=== PATIENT | female | born 1975 | race Caucasian/White ===

== ENCOUNTER → 2021-05-08 14:43 | Outpatient (BNVA) | payer MEDICARE, MEDICAID, SELFPAY | PROVIDERS: Family Provider Family Medicine; PCP Anesthesiology; Visit Provider Orthopaedic Surgery | DX: M54.5 Low back pain (principal); M48.061 Spinal stenosis, lumbar region without neurogenic claudication | CPT/HCPCS: 72110 ==

== ENCOUNTER → 2021-05-09 15:28 | Outpatient (BNVA) | payer MEDICARE, MEDICAID, SELFPAY | PROVIDERS: Family Provider Family Medicine; PCP Anesthesiology; Visit Provider Podiatrist Foot & Ankle Surgery | DX: M79.673 Pain in unspecified foot (principal); S86.319A Strain of muscle(s) and tendon(s) of peroneal muscle group at lower leg level, unspecified leg, initial encounter; X58.XXXA Exposure to other specified factors, initial encounter | CPT/HCPCS: 73610 ==

== ENCOUNTER 2021-05-09 16:18 | Outpatient (CLI) | payer MEDICARE, MEDICAID, SELFPAY | END 2021-05-09 16:19 | disposition home or self-care (01) | LOC: SPT 05-10 10:19 | PROVIDERS: Family Provider Family Medicine; PCP Anesthesiology; Visit Provider Podiatrist Foot & Ankle Surgery | DX: Z46.89 Encounter for fitting and adjustment of other specified devices (principal); M76.71 Peroneal tendinitis, right leg | CPT/HCPCS: 97760; L4361 ==

== ENCOUNTER → 2021-05-14 09:13 | Outpatient (BNVA) | payer MEDICARE, MEDICAID, SELFPAY | PROVIDERS: Family Provider Family Medicine; PCP Family Medicine; Referring Provider Orthopaedic Surgery; Visit Provider Anesthesiology Pain Medicine | DX: G89.29 Other chronic pain (principal); M54.41 Lumbago with sciatica, right side; M47.816 Spondylosis without myelopathy or radiculopathy, lumbar region; M54.16 Radiculopathy, lumbar region; M43.10 Spondylolisthesis, site unspecified; M79.604 Pain in right leg; Z79.891 Long term (current) use of opiate analgesic | CPT/HCPCS: 99204 ==

== ENCOUNTER → 2021-06-04 13:08 | Outpatient (BNVA) | payer MEDICARE, MEDICAID, SELFPAY | PROVIDERS: Family Provider Family Medicine; PCP Family Medicine; Visit Provider Anesthesiology Pain Medicine | DX: M54.16 Radiculopathy, lumbar region (principal); Z79.891 Long term (current) use of opiate analgesic | CPT/HCPCS: 64483; 64484; J1100; J3490 ==

== ENCOUNTER → 2021-07-18 09:50 | Outpatient (BNVA) | payer MEDICARE, MEDICAID, SELFPAY | PROVIDERS: Family Provider Family Medicine; PCP Family Medicine; Visit Provider Podiatrist Foot & Ankle Surgery | DX: M79.673 Pain in unspecified foot (principal); M19.072 Primary osteoarthritis, left ankle and foot | CPT/HCPCS: 73630 ==

== ENCOUNTER 2021-09-12 12:06 | Observation (INO) | payer MEDICARE, MEDICAID, SELFPAY ==
[2021-09-11 13:32] VITALS: BMI 26.2
[2021-09-12] VITALS (28 sets, daily range): BP systolic 101–176; BP diastolic 62–111; PULSE 65–93; RESP 13–25; TEMP 36.3–36.8; O2SAT 90–100; BMI 26.2
--- NOTE | 2021-09-12 | SCC_ITS ---
Procedure: 1. L4/5 Interbody fusion with posterolateral fusion 2. Instrumentation L4/5 3. Cage at L4/5 4. Laminectomy L4 5. use of autograft from same incision 6. allograft 7. Bone marrow aspirate from right iliac crest from separate incision in fascia 8. use of computer naviagtion/ stereotactic spine 11 seconds of fluoroscopic guidance, for a cumulative dose of 20.7 mGy, was provided to Dr. Keating by the radiology department. C-arm images of the lumbar spine were saved for the patient's permanent record. AMADOR
--- NOTE | 2021-09-12 | XR_ITS ---
WS: [id number] Lumbar spine, C-arm fluoroscopy, 09/12/2021 Clinical Data: or pics Comparison: None. Findings: Dr. Keating performed a posterior lumbar fusion at L4-L5 with a disc spacer at L4-L5. XR/XR lumbar spine 2-3V* [id number] Impression: Posterior lumbar fusion
--- NOTE | 2021-09-12 07:51 | ANES.PREANE2 ---
Pre-Anesthetic Assessment Pre-Anesthetic Assessment: Height/Weight: Height 1.57 m Weight 64.864 kg Temp Pulse Resp BP Pulse Ox 98.1 F 65 18 121/71 96 09/12/21 07:39 09/12/21 07:39 09/12/21 07:39 09/12/21 07:39 09/12/21 07:39 Preop Diagnosis: Spinal listhesis L4-5 with Lumbar radiculopathy Proposed Procedure: Operation Date: 09/12/21 09:00 Proposed Procedures p Posterior Lumbar Interbody Fusion L4/5 [id number] M43.16(Not Applicable) - Damian Keating, DO Was Beta Estuardo taken within 24 hours: Yes Was Clonidine taken within 24 hours: N/A Last intake: Intake Last Liquid Date 09/11/21 Last Liquid Time 22:00 Last Solid Date 09/11/21 Last Solid Time 22:00 Social: Social History: Tobacco (vapes) and No alcohol Exam: Pre-Anes Outpt Exam: alert, oriented x 3, clear to auscultation bilaterally and regular rate & rhythm Airway: Submandibular: WNL Cervical ROM: WNL MP: 2 Dentition: Full CV/HEM: CV/HEM: HTN Musc/skel: Musc/skel: Lower Back Pain Comments: Chronic pain/opioid Neuropsych: Neuropsych: Anxiety Anesthetic Plan: ASA status: 3 Anesthesia: General Other: +/- A.line, Transfusion OK if necessary Risk of > 500 ml blood loss (7ml/kg in children): Yes, adequate IV access and fluids planned PFSH Anesthesia PFSH: Medical History Lumbar radiculitis Family History Father Hypertension Diabetes Mother Hypertension Social History Second hand smoke exposure: No Alcohol intake: current Alcohol intake frequency: holidays/special occasions only Alcohol type: other Marital status: History of recent travel: No Female Reproductive History: Date of last menstrual period: 08/06/21 Data Anesthesia Cardiac Studies: No Data to Display
[2021-09-12] MEDS: sodium chloride 0.9% 1,000 ML 30 ML IV (08:00)
[2021-09-12 08:15] LABS: Basophils # 0.1 10^3/uL (0.0-0.1); Basophils % 1.3 %; Eosinophils # 0.3 10^3/uL (0.0-0.8); Eosinophils % 3.1 %; Hematocrit 36.6 % (37.0-47.0); Lymphocytes # 3.1 10^3/uL (0.8-4.8); Lymphocytes % 37.2 %; Mean Corpuscular HGB Conc 32.8 g/dL (30.0-36.0); Mean Corpuscular Hemoglobin 32.5 pg (28.0-34.0); Mean Corpuscular Volume 99.2 fl (81-99); Monocytes # 0.7 10^3/uL (0.2-0.9); Monocytes % 8.3 %; Neutrophils # 4.09 10^3/uL (1.8-7.7); Nucleated Red Blood Cells % 0 %; Platelet Count 373 10^3/cmm (130-400); Red Blood Count 3.69 10^6/uL (4.1-5.3); White Blood Count 8.2 10^3/uL (4.0-10.0)
[2021-09-12 08:23] LABS: OR HCG Qualitative Urine Negative (Negative)
[2021-09-12 08:40] LABS: Anion Gap 12.8 (5-19); Blood Urea Nitrogen 17 mg/dL (6-20); Calcium 9.1 mg/dL (8.5-10.5); Carbon Dioxide 27 mmol/L (22-29); Chloride 104 mmol/L (98-107); Glomerular Filtration Rate 90.1 mL/min (90-130); Glucose 90 mg/dL (65-115); Osmolality Calculated 291 mOsm/kg (285-295); Potassium 3.8 mmol/L (3.5-5.1); Sodium 140 mmol/L (136-145)
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
[2021-09-12] MEDS: heparin, porcine 1,000 unit/mL INJ 10 mL 10000 UNIT IRRIGATION (10:21)
[2021-09-12] MEDS: vancomycin 1,000 MG SDV 1000 MG XX (10:28)
--- NOTE | 2021-09-12 12:26 | P.OP_ITS ---
Operative Report Date of procedure: September 12, 2021 Pre-op Diagnosis: Sponylolisthesis L4-5 with Lumbar radiculopathy Post-op diagnosis: same Post-op Findings: 1. L4/5 Interbody fusion with posterolateral fusion 2. Instrumentation L4/5 3. Cage at L4/5 4. Laminectomy L4 5. use of autograft from same incision 6. allograft 7. Bone marrow aspirate from right iliac crest from separate incision in fascia 8. use of computer naviagtion/ stereotactic spine Surgeon: Damian Keating Maintenance Of Way Foreman: Trent Grace Maintenance Of Way Foreman: The surgical instrument mechanic, Trent Grace, PAC was needed for his expertise under the microscope. He was important and necessary throughout the procedure to complete in a safe and timely manner. He assisted with patient positioning prepping and draping tissue retraction suctioning of the operative field protection of the dural sac and tissue closure Anesthesia: General Estimated blood loss (mL): 200 Condition: stable Disposition: PACU Procedure: 1. L4/5 Interbody fusion with posterolateral fusion 2. Instrumentation L4/5 3. Cage at L4/5 4. Laminectomy L4 5. use of autograft from same incision 6. allograft 7. Bone marrow aspirate from right iliac crest from separate incision in fascia 8. use of computer naviagtion/ stereotactic spine Patient is brought to the operative suite. After undergoing anesthesia, the patient had neuro monitoring attached. Patient was then placed in the prone position on the Yusef table. All areas of impingement were well-padded. Patient was then prepped and draped in the normal sterile fashion. Skin incision was then made over the L4/5 disk space. Subperiosteal dissection was made out to the transverse processes of L4 and L5. Once the exposure was complete attention was then brought to obtaining bone marrow aspirate. The [employer] bone marrow aspirate kit was used to aspirate bone marrow aspirate from right iliac crest. This was done by using the sharp probe to open up the bone. Aspiration was performed and then the blunt probe was then used to dissect down to through the bone tunnel. An aspirating well drawn back a millimeter approximately 20 cc of bone marrow aspirate was used. And mixed with the allograft and autograft bone that will be used. Next attention was brought to placing the fiducial in the right iliac crest. This was done by placing 2 pins. And the fiducial was connected. The information for the computer was logged into the fiducial. Then the C arm was brought in and information from fluoroscopy was linked into the computer which was then linked to the fiducial. This was used for the computer navigation component. The technique for placing the pedicle screws was to use a drill followed by the gearshift probe with computer navigation. Followed by the ball probe to feel the superior inferior medial lateral monroy of the pedicles. Then placement of the screw with computer navigation. Was done at each pedicle. Screws were placed at L4 bilaterally and L5 bilaterally. Next attention was brought to performing the laminectomy of L4. This was done using the high-speed bur Kerrisons and curettes. Once the lamina was removed and then attention was brought to performing a partial facetectomy on the contralateral side. This was done again using the high-speed bur curettes and Kerrisons. The ligamentum flavum was taken down bilaterally from L4 to L5. Attention was then brought to the facet on the ipsilateral side. The facet was taken down. The L5 nerve was decompressed as it passed around the L5 pedicle. The laminectomy was done for purposes of decompressing the nerve as well as placement of the cage. The L4 nerve was identified as it traversed through the L4/5 foramen. The thecal sac was identified and retracted. The L4/5 disc base was identified. Using a knife the disc base was opened. And then sequential hayley were placed. The first shaver was a 6 and the last shaver was a 10. Using a pituitary and down going curette the endplates were scraped and disc ma terial was removed from the space. Once adequate decompression of the disc base was felt to be had. Osteoamp sponge was packed into the anterior aspect of the disc base. Then a size 10 cage from [employer] was placed after packing osteoamp into the cage. While placing the cage the thecal sac and L5 nerve was protected. C arm was used to ensure that the cages placed in the appropriate position. Attention was then brought to attaching the rods to the screws placed in the L4 and L5 bilaterally. Caps were torqued into position. Locking the construct in place. Wound was copiously irrigated and then attention was brought to decorticating the facets and transverse processes laterally. Bone that was taken down from the lamina was used along with osteoamp fibers and sponges were packed into the lateral gutters along the facet joints. This was done bilaterally. Wound was then closed in a layered fashion starting with the thoracolumbar fascia. 0-vicryl was used the sub cutaneous tissue was closed with 2-0 vicryl and skin with 4-0 monocryl. Glue was then used to seal the skin and a steril dressing was applied. Patient was then placed in the supine position. The endotracheal tube was removed and patient was transferred to the PACU in stable condition.
[2021-09-12] MEDS: HYDROmorphone 1 mg/mL INJ 1 mL 0.5 MG IVP ×2 (12:29→12:39)
[2021-09-12] MEDS: HYDROmorphone 1 mg/mL INJ 1 mL 0.25 MG IVP ×4 (12:52→13:22)
--- NOTE | 2021-09-12 13:17 | ANE.PACU2 ---
Inpatient post-anesthesia follow up: Airway intact: Yes Vital signs: Temperature 97.4 F Pulse Rate 77 Respiratory Rate 16 Blood Pressure 125/82 Pulse Oximetry 94 Oxygen Delivery Me thod Room Air Oxygen Flow Rate 8 Fraction of Inspir ed Oxygen Hydration adequate: Yes Nausea and vomiting: No Pain level: 4 Mental status: Baseline
[2021-09-12] MEDS: HYDROcodone-acetaminophen 5-325 mg Tablet PO (13:56)
[2021-09-12] MEDS: cyclobenzaprine 10 mg Tablet PO ×2 (13:56→22:01)
[2021-09-12] MEDS: lactated ringers 1,000 ML 90 ML IV (14:30)
[2021-09-12] MEDS: pregabalin 100 mg Capsule PO ×2 (14:30→20:30)
[2021-09-12] MEDS: ketorolac 30 mg/mL INJ IVP (15:22)
[2021-09-12] MEDS: oxyCODONE 5 mg IR Tab/Cap PO ×2 (17:27→22:01)
[2021-09-12] MEDS: docusate sodium 100 mg Capsule PO (17:28)
[2021-09-12] MEDS: metoprolol tartrate 50 mg Tablet PO (17:28)
[2021-09-12] MEDS: HYDROcodone-acetaminophen 7.5-325 mg Tablet 1 TAB PO (20:30)
[2021-09-13] VITALS: BP 100/63; PULSE 72; RESP 18; TEMP 36.6; O2SAT 94
[2021-09-13] MEDS: lactated ringers 1,000 ML 90 ML IV (00:42)
[2021-09-13] MEDS: HYDROcodone-acetaminophen 7.5-325 mg Tablet 1 TAB PO ×2 (00:47→08:06)
[2021-09-13] MEDS: ketorolac 30 mg/mL INJ IVP ×2 (00:47→08:07)
--- NOTE | 2021-09-13 03:07 | PC.NURSE ---
This RN went to empty hemovac. Hemovac noted to be sitting on bed and not in connected to pt. 15 mL noted.
[2021-09-13 05:17] VITALS: RESP 18
[2021-09-13] MEDS: oxyCODONE 5 mg IR Tab/Cap PO (05:17)
[2021-09-13] MEDS: enoxaparin 40 mg/0.4 mL Syringe SUBCUT (05:17)
[2021-09-13] MEDS: cyclobenzaprine 10 mg Tablet PO (05:17)
--- NOTE | 2021-09-13 06:04 | PC.NURSE ---
Pt refused 0600 lasix dose stating that's going to make me go pee a lot . RN encouraged and educated pt on medication usage and importance to take medication. Pt agreeable if she could take it later in the morning when her family would be available to help assist to the restroom. Medication rescheduled to 0800.
[2021-09-13 07:13] VITALS: BP 107/68; PULSE 84; RESP 16; TEMP 36.7; O2SAT 93
--- NOTE | 2021-09-13 07:38 | PM.PN ---
Documented by User: YEN Young 09/13/21 07:41 Subjective Subjective: Interval history: POD 1 Patient resting comfortably. Mild back pain legs feeling much better. Denies any chest pain, shortness of breath, headaches. Vitals/I&O/Wt Last Vital Signs Temp 98.1 F 09/13/21 07:13 Pulse 84 09/13/21 07:13 Resp 16 09/13/21 07:13 BP 107/68 09/13/21 07:13 Pulse Ox 93 09/13/21 07:13 09/12/21 09/13/21 09/13/21 22:59 06:59 14:59 Intake Total 1540 / 1600 1240 / 2840 Output Total 70 / 870 Balance 1470 / 730 1240 / 1970 Weight last 48 hrs Weight 143 lb Weight 143 lb Physical Exam Narrative: EXAM NARRATIVE: Patient presents alert and oriented x3 with a good general appearance normal normal affect. Normal coordination normal stability. Mild tenderness around the incisional site with the incision is C/D. No signs of erythema or drainage. No signs of infection. Patient denies any fevers or chills. 5/5 motor strength both lower extremities with negative straight leg raise bilaterally. Calves are supple no medial thigh tenderness. Pulses are 2+ at the dorsalis pedis and posterior tibial region. Good capillary refill throughout normal sensation light touch both lower extremities. Urinary Catheter Management^: Dinh: Cath Placed During This Visit: yes, but has since been removed by the nurse Urinary Catheter Date of Insertion: 09/12/21 Urinary Catheter Time of Insertion: 09:45 Date Urinary Catheter Removed: 09/12/21 Time Urinary Catheter Discontinued: 12:00 Data : 09/12/21 07:57 09/12/21 07:57 A&P Assessment and plan (1) Status post lumbar spinal fusion: Physical therapy work with her on mobilization. Continue incentive spirometry for pulmonary toilet. Discharge home. We will see her back in 1 week's time for incisional check. She will call the office if she has any questions in the meantime. Status: Acute Attestations Medical Necessity Statement*: dc home today Coding Level of Care Code Acute Elevator Supervisor for [facility] Diagnoses Status post lumbar spinal fusion Z98.1 Documented by User: Damian Keating DO 09/13/21 07:50 Physical Exam Urinary Catheter Management^: Dinh: Cath Placed During This Visit: no Data : 09/12/21 07:57 09/12/21 07:57 Coding Level of Care Code Acute Elevator Supervisor for [facility] Fwd Diagnoses Status post lumbar spinal fusion Z98.1
--- NOTE | 2021-09-13 07:48 | PM.DCS ---
Discharge Providers Date of Admission: 09/12/21 12:06 Date of Discharge: September 13, 2021 Attending Provider at Admission: Damian Keating DO Attending Provider at Discharge: Damian Keating DO Primary Care Provider: Shana Malave MD Diagnoses at Discharge Discharge Diagnosis (1) Status post lumbar spinal fusion: Status: Acute Reason for Visit Reason for Visit: Spondylolisthesis lumbar region Hospital Course Hospital Course Patient was admitted on 09/12/2021. She had an L4-5 posterior lumbar interbody fusion. She will be discharged on 09/13/2021. Her stay was uneventful. Physical Exam Urinary Catheter Management^: Dinh: Cath Placed During This Visit: yes, but has since been removed by the nurse Urinary Catheter Date of Insertion: 09/12/21 Urinary Catheter Time of Insertion: 09:45 Date Urinary Catheter Removed: 09/12/21 Time Urinary Catheter Discontinued: 12:00 Discharge Data Data Completed and Pending: Completed Studies During Hospitalization Category Date Time Status XR lumbar spine 2 -3V* [id number] Routine Exams 09/12/21 Completed Pending at discharge Category Date Time Status C-arm Fluoroscopy [id number] Routine Exams 09/12/21 07:23 Taken Retype for Patiet s ABO/Rh Routine Lab 09/12/21 09:26 Ordered Labs from last 24 hours 09/12/21 09/12/21 09/12/21 08:22 07:57 07:57 WBC RBC Hgb Hct MCV MCH MCHC RDW Plt Count MPV Neut % (Auto) Lymph % (Auto) [place] % (Auto) Eos % (Auto) Baso % (Auto) Neut # (Auto) Lymph # (Auto) [place] # (Auto) Eos # (Auto) Baso # (Auto) Nucleated RBC % (a uto) Nucleated RBCs # Sodium 140 Potassium 3.8 Chloride 104 Carbon Dioxide 27 Anion Gap 12.8 BUN 17 Creatinine 0.7 GFR Calculation 90.1 Glucose 90 Calculated Osmolal ity 291 Calcium 9.1 Urine HCG, Qual Negative Blood Type O Positive Rho(D) Type Positive Antibody Screen Negative 09/12/21 07:57 WBC 8.2 RBC 3.69 L Hgb 12.0 Hct 36.6 L MCV 99.2 H MCH 32.5 MCHC 32.8 RDW 12.0 L Plt Count 373 MPV 10.0 Neut % (Auto) 50.0 Lymph % (Auto) 37.2 [place] % (Auto) 8.3 Eos % (Auto) 3.1 Baso % (Auto) 1.3 Neut # (Auto) 4.09 Lymph # (Auto) 3.1 Caswell # (Auto) 0.7 Eos # (Auto) 0.3 Baso # (Auto) 0.1 Nucleated RBC % (a uto) 0 Nucleated RBCs # 0.0 Sodium Potassium Chloride Carbon Dioxide Anion Gap BUN Creatinine GFR Calculation Glucose Calculated Osmolal ity Calcium Urine HCG, Qual Blood Type Rho(D) Type Antibody Screen Vitals: Last Vital Signs Temp 98.1 F 09/13/21 07:13 Pulse 84 09/13/21 07:13 Resp 16 09/13/21 07:13 BP 107/68 09/13/21 07:13 Pulse Ox 93 09/13/21 07:13 Discharge Plan Discharge Patient Disposition: Home Condition: Stable Prescriptions: New hydrocodone-acetaminophen 10-325 mg tablet 1 - 2 tab PO Q4H PRN (Reason: pain) 7 Days Qty: 40 RF: 0 Continued (DME) Cam Walker See Rx Instructions .Route .MEDSUPPLY Qty: 1 RF: 0 omeprazole 20 mg capsule,delayed release(DR/EC) 20 mg PO DAILY RF: 0 cyclobenzaprine 10 mg tablet 10 mg PO TID PRN (Reason: muscle spasm) Qty: 30 RF: 0 pregabalin [Lyrica] 100 mg capsule 100 mg PO TID RF: 0 fluticasone propion-salmeterol [Advair Diskus] 100-50 mcg/dose blister with device 1 puff INHALATION BID RF: 0 potassium chloride 10 mEq capsule, extended release 10 meq PO DAILY RF: 0 furosemide 20 mg tablet 10 mg PO QAM RF: 0 metoprolol tartrate 50 mg tablet 50 mg PO BID RF: 0 MEDICAL MARIJUANA PO RF: 0 Discontinued hydrocodone-acetaminophen 7.5-325 mg tablet 1 tab PO Q4H PRN (Reason: Pain) RF: 0 bupivacaine (PF) 0.25 % (2.5 mg/mL) solution 2 ml epidural ONCE Qty: 1 RF: 0 ibuprofen 800 mg tablet 800 mg PO TID RF: 0 Discharge Orders: Discharge Order (Routine); Ordered 09/13/21 Ordered By: Damian Keating Discharge Diet: Advance as tolerated Discharge Activity: Resume usual activity Patient Instructions: Opioid Safety Activity Restrictions/Additional Instructions: Thank you for [facility] for your care! The following is a list of instructions, from your provider, to follow upon your discharge to ensure you have the optimal recovery from your recent injury orsurgery. Follow-up care is a jacobo part of your treatment and safety. Be sure to make and go to all appointments, and call your doctor if you are having problems. If you do not already have a follow-up appointment made, call Dr. Keating office in the next 1-3 days to make follow up appointment for 1 week at [phone]. It is also a good idea to know your test results and keep a list of the medicines you take. Medications will be prescribed for you at your provider's discretion. These medications are to be used as instructed; if they are taken more often that prescribed they will not be refilled early and in most cases will not be refilled at all. > When a refill is needed,you should contact [facility] 2-3 business days before your prescription runs out. Medications will NOT be refilled by protective signal operations supervisor providers after hours! > Many pain medications contain Tylenol (Acetaminophen). Do not consume more than 4,000 mg of Tylenol per day in total with any combination ofmedications. > Pain medications can cause constipation. Please use an over the counter stool softener as directed, while taking pain medications. Consulty our local pharmacist with questions or recommendations on stool softeners. If constipation persists, contact our office or your primary care provider. > While under our care,you are not to receive pain medications or other controlled substances from any other provider unless our office is notified and approves. Any attempts to do so will result in refusal to prescribe any further pain medications and possible dismissal from our practice. ? Your wound and/or dressing should remain clean and dry We will change in the office in 1 week keep dressing on at all times. Call if there are any problems. ? Walking is essential for the healing process after surgery. We would like you to slowly advance your walking. This should be done on relatively flat clear ground (inside or out) or can be done on a treadmill. Remember this goal does not have to happen all at once, slowly increase your distance and duration. This can be broken into more more than one walk per day as tolerated. Patients who walk as directed after surgery rarely require Physical Therapy. In the unlikely event this issue arises your provider will direct hospital staff to make the appropriate arrangements. ? No lifting over 5 pounds {a gallon of milk) or bending/twisting until further notice. Each of these activities places an unnecessary amount of stress onto the body and can impede the delicate healing process. > Instead of bending at the waist, keep your back straight and bend at the knees. > Instead of twisting your torso, keep your back straight and turn your entire body with your feet. ? You may sleep in any position which makes you comfortable. Many patients find comfort sleeping in a reclining chair. It is not abnormal to have difficulty sleeping for the first several weeks following your surgery. We recommend trying Benadry! or Tylenol PM as directed to help with your sleeping difficulties. Both medications are over the counter and available withoutprescription. ? NO SMOKING!!! Smoking dramatically increases the probability of developing postoperative wound infections. ? Common complaints after lumbar and/or thoracic spine surgery include, but are not limited to: numbness and/or tingling in the legs, pain around the incision and surrounding tissues, muscle spasms, or stiffness of the middle to low back. Contact our office if these symptoms persist or if an acute change occurs. ? No driving for the first 3-5days, and not while taking narcotics [] until seen at your follow-up appointment and cleared. There are no restrictions for riding on short trips, however if you take a longer trip, arrangements should be made to make regular stops to get out of the vehicle and stretch . ? Swelling is an unfortunate event that will take place with any surgery and is the primary source of your postoperative discomfort. While walking and regular approved activities helps control inflammation, there are additional steps you can take to minimizeswelling. > Place ice over the surgical site and surrounding tissue for twenty minutes, followed by applying a low/medium heat (heating pad) for an additional twenty minutes every 1-2 hours as needed for painrelief. > You may use of over the counter anti-inflammatory medications (Ibuprofen, Motrin, Aleve, Advil, etc) as directed on the package label. These types of medicines wm significantly reduce the amount of discomfort you experience after surgery from swelling. It should be noted that if you have and allergy to any of these medications, or a history of ulcers or kidney disease you should consult you primary care provider prior to starting these medications. Discharge Attestations Time Spent in Discharge Care*: less than 30 min Quality Metrics Clinical Quality Measures During this hospital stay, did patient experience: None Coding Level of Care Code Acute Chg FW DC note Diagnoses Status post lumbar spinal fusion Z98.1
[2021-09-13] MEDS: FUROsemide 20 mg Tablet 10 MG PO (08:06)
[2021-09-13] MEDS: potassium chloride ER 10 mEq Tablet PO (08:07)
[2021-09-13] MEDS: metoprolol tartrate 50 mg Tablet PO (08:08)
[2021-09-13] MEDS: pregabalin 100 mg Capsule PO (08:08)
[2021-09-13] MEDS: docusate sodium 100 mg Capsule PO (08:08)
[2021-09-13] MEDS: pantoprazole DR 40 mg Tablet PO (08:08)
[2021-09-13 10:06] VITALS: BP 107/68; PULSE 84; RESP 16; TEMP 36.7; O2SAT 93
== END 2021-09-13 10:07 | disposition home or self-care (01) ==
LOC: MEDSURG 12:06
PROVIDERS: Anesthesiology; Admitting Provider Orthopaedic Surgery; PCP Family Medicine; Visit Provider Orthopaedic Surgery
PROC: (CPT 22612; principal; 2021-09-12 08:50)
DX: M43.16 Spondylolisthesis, lumbar region (principal); I10 Essential (primary) hypertension; F41.9 Anxiety disorder, unspecified; F17.290 Nicotine dependence, other tobacco product, uncomplicated
CPT/HCPCS: 20930; 20936; 20939; 22633 ×3; 22634 ×2; 22840 ×2; 22853 ×2; 63047; 36415; 51702; 72100; 76000; 80048; 81025; 84703; 85025; 86850; 86900; 94664; 96372; 97161; 97165; 97530; A9281; C1713; G0378; J0690; J1100; J1170; J1644; J1650; J1885; J2405; J2704; J3010; J3370; J3490; J7030

== ENCOUNTER → 2021-10-25 11:05 | Outpatient (BNVA) | payer MEDICARE, MEDICAID, SELFPAY | PROVIDERS: PCP Family Medicine; Visit Provider Orthopaedic Surgery | DX: Z48.89 Encounter for other specified surgical aftercare (principal); Z98.1 Arthrodesis status; M43.16 Spondylolisthesis, lumbar region | CPT/HCPCS: 72100 ==

== ENCOUNTER → 2021-11-27 09:31 | Outpatient (BNVA) | payer MEDICARE, MEDICAID, SELFPAY | PROVIDERS: PCP Family Medicine; Visit Provider Physician Assistant | DX: Z48.89 Encounter for other specified surgical aftercare (principal); Z98.1 Arthrodesis status; M43.16 Spondylolisthesis, lumbar region | CPT/HCPCS: 72100 ==

== ENCOUNTER → 2021-12-25 10:00 | Outpatient (BNVA) | payer MEDICARE, MEDICAID, SELFPAY | PROVIDERS: PCP Family Medicine; Visit Provider Physician Assistant | DX: Z47.89 Encounter for other orthopedic aftercare (principal); Z98.1 Arthrodesis status | CPT/HCPCS: 72100 ==

== ENCOUNTER → 2022-10-21 14:05 | Outpatient (BNVA) | payer MEDICARE, MEDICAID, SELFPAY | PROVIDERS: PCP Family Medicine; Referring Provider Student in an Organized Health Care Education/Training Program; Visit Provider Internal Medicine | DX: E05.90 Thyrotoxicosis, unspecified without thyrotoxic crisis or storm (principal); R68.89 Other general symptoms and signs | CPT/HCPCS: 36415; 83516; 84439; 84443; 84480; 86376; 86800; 99204 ==